=== PATIENT | male | born 1990 | race Caucasian/White ===

== ENCOUNTER 2017-07-22 22:16 | Emergency (ER) | payer SELFPAY ==
[~2017-07-22] VITALS: Ht 27.9 cm; Wt 81.8 kg
[~2017-07-22 22:16] MED LIST: CEPHALEXIN500 M1 PO; NAPROXEN EC500 MG PO; NO HOME MEDICATIONS; SEPTRA DS 8001 TAB PO; VYVANSE20 MG PO
[2017-07-22 22:25] VITALS: TEMP 99
[2017-07-22 23:57] VITALS: BP 154/67; PULSE 94
== END 2017-07-22 23:58 | disposition home or self-care (01) ==
LOC: COL.ER 22:16
DX: S91.302A Unspecified open wound, left foot, initial encounter (principal); S91.301A Unspecified open wound, right foot, initial encounter; X58.XXXA Exposure to other specified factors, initial encounter

== ENCOUNTER 2017-08-13 20:36 | Emergency (ER) | payer SELFPAY ==
[~2017-08-13] VITALS: Ht 180.3 cm; Wt 84.1 kg
[2017-08-13 20:39] VITALS: TEMP 97.9
[2017-08-13 20:48] LABS: BASO # 0.1 (0.0-0.2); BASO % 0.6 % (0.0-2.0); EOS # 0.1 (0.0-0.7); EOS % 0.9 % (0-4.0); GRAN # 6.8 (1.4-6.5); GRAN % 72.5 % (42.2-75.2); HEMATOCRIT 42.5 % (42.0-52.0); HEMOGLOBIN 14.8 g/dl (13.5-18.0); LYMPH # 1.7 (1.2-3.4); LYMPH % 17.9 % (20.0-51.0); MEAN CELL VOLUME 92 fl (80.0-100.0); MEAN CORPUSCULAR HEMOGLOBIN 32 pg (27.0-31.0); MEAN CORPUSCULAR HGB CONC 35 g/dl (33.0-37.0); MEAN PLATELET VOLUME 11.4 fl (7.4-10.4); MONO # 0.7 (0.1-0.6); MONO % 7.7 % (1.7-9.3); PLATELET COUNT 231 K/mm3 (130-400); RED BLOOD COUNT 4.63 M/mm3 (4.20-5.60); REDCELL DISTRIBUTION WIDTH-CV 11.9 % (11.5-14.5)
[2017-08-13 20:58] LABS: ALBUMIN 4.2 gm/dL (3.5-5.0); BILIRUBIN,TOTAL 0.9 mg/dL (0.0-1.0); CALCIUM 8.8 mg/dL (8.4-10.2); CREATININE, serum 0.8 mg/dL (0.66-1.25); POTASSIUM 3.7 mmol/L (3.4-5.0); TOTAL PROTEIN 7.6 gm/dL (6.4-8.2)
[2017-08-13 22:35] LABS: TRICYCLIC ANTIDEPRESS URINE NEGATIVE
[2017-08-14 00:54] VITALS: BP 107/87; PULSE 78
== END 2017-08-14 01:03 | disposition home or self-care (01) ==
LOC: COL.ER 20:36
PROVIDERS: Emergency Medicine
DX: F10.129 Alcohol abuse with intoxication, unspecified (principal); Y90.8 Blood alcohol level of 240 mg/100 ml or more
CPT/HCPCS: J2405; J7030

== ENCOUNTER 2018-03-21 20:31 | Emergency (ER) | payer OTHER ==
[~2018-03-21] VITALS: Ht 177.8 cm; Wt 79.5 kg
[2018-03-21 20:52] VITALS: TEMP 97.9
[2018-03-21 21:25] LABS: BASO # 0.1 (0.0-0.2); BASO % 0.7 % (0.0-2.0); EOS # 0.1 (0.0-0.7); EOS % 1.2 % (0-4.0); GRAN % 65.6 % (42.2-75.2); HEMATOCRIT 40.1 % (42.0-52.0); HEMOGLOBIN 13.9 g/dl (13.5-18.0); LYMPH # 2.1 (1.2-3.4); LYMPH % 23.3 % (20.0-51.0); MEAN CELL VOLUME 91 fl (80.0-100.0); MEAN CORPUSCULAR HEMOGLOBIN 32 pg (27.0-31.0); MEAN CORPUSCULAR HGB CONC 35 g/dl (33.0-37.0); MEAN PLATELET VOLUME 11.5 fl (7.4-10.4); MONO # 0.8 (0.1-0.6); MONO % 8.9 % (1.7-9.3); PLATELET COUNT 202 K/mm3 (130-400); RED BLOOD COUNT 4.39 M/mm3 (4.20-5.60); REDCELL DISTRIBUTION WIDTH-CV 12.2 % (11.5-14.5)
[2018-03-21 21:31] LABS: ALBUMIN 3.8 gm/dL (3.5-5.0); BILIRUBIN,TOTAL 0.3 mg/dL (0.0-1.0); CALCIUM 7.8 mg/dL (8.4-10.2); CREATININE, serum 0.92 mg/dL (0.66-1.25); POTASSIUM 4.6 mmol/L (3.4-5.0); TOTAL PROTEIN 6.5 gm/dL (6.4-8.2)
[2018-03-21 23:47] LABS: ACETAMINOPHEN < 10 ug/mL (10-30); SALICYLATE < 1.0 mg/dL
[2018-03-22] MEDS ORDERED: CRUTCHES MC (06:34)
[2018-03-22 08:50] LABS: TRICYCLIC ANTIDEPRESS URINE NEGATIVE
--- NOTE | 2018-03-22 09:29 | NUR ---
glassworker met with patient who states he is homeless and is unsure if any of his family members will help him. Patient has a fracture to his fibula and will need crutches. Worker arranged for financial counselor to meet with patient and [facility] to deliver crutches to his room. Worker provided taxi voucher for a ride to his sister's home, per patient request. Worker confirmed that patient is banned from staying at the [facility]. Worker collaborated with patient's nurse regarding the above information.
[2018-03-22 10:28] VITALS: BP 117/68; PULSE 95
== END 2018-03-22 10:33 | disposition home or self-care (01) ==
LOC: COL.ER 20:31
PROVIDERS: Emergency Medicine
DX: S82.831A Other fracture of upper and lower end of right fibula, initial encounter for closed fracture (principal); F10.129 Alcohol abuse with intoxication, unspecified; Y90.8 Blood alcohol level of 240 mg/100 ml or more; X58.XXXA Exposure to other specified factors, initial encounter
CPT/HCPCS: J2060; J7030

== ENCOUNTER 2018-05-17 19:36 | Emergency (ER) | payer SELFPAY ==
[~2018-05-17] VITALS: Ht 180.3 cm; Wt 81.8 kg
[~2018-05-17 19:36] MED LIST changes: +CRUTCHES MC
[2018-05-17 19:39] VITALS: BP 138/82; PULSE 80; TEMP 98
== END 2018-05-17 20:52 | disposition home or self-care (01) ==
LOC: COL.ER 19:36
DX: S86.912A Strain of unspecified muscle(s) and tendon(s) at lower leg level, left leg, initial encounter (principal); F17.210 Nicotine dependence, cigarettes, uncomplicated; F12.90 Cannabis use, unspecified, uncomplicated; X50.0XXA Overexertion from strenuous movement or load, initial encounter

== ENCOUNTER 2018-08-10 14:22 | Emergency (ER) | payer SELFPAY ==
[~2018-08-10] VITALS: Ht 180.3 cm; Wt 81.8 kg
[2018-08-10 14:27] VITALS: BP 154/76; PULSE 81; TEMP 98.1
== END 2018-08-10 16:00 | disposition home or self-care (01) ==
LOC: COL.ER 14:22
DX: S46.912A Strain of unspecified muscle, fascia and tendon at shoulder and upper arm level, left arm, initial encounter (principal); F17.210 Nicotine dependence, cigarettes, uncomplicated; V19.9XXA Pedal cyclist (driver) (passenger) injured in unspecified traffic accident, initial encounter

== ENCOUNTER 2018-12-25 20:09 | Emergency (ER) | payer SELFPAY ==
[~2018-12-25] VITALS: Ht 162.6 cm; Wt 63.6 kg
[2018-12-25 20:14] VITALS: TEMP 98.2
[2018-12-25 20:30] LABS: COLLECTION METHOD CLEAN CATCH
[2018-12-25 20:35] LABS: PH 5 (5-8); SQUAMOUS EPITHELIAL None Seen /hpf; URINE APPEARANCE Clear; URINE BACTERIA None Seen /hpf; URINE BILIRUBIN Negative (NEGATIVE); URINE BLOOD Negative (NEGATIVE); URINE COLOR Straw; URINE GLUCOSE Negative (NEGATIVE); URINE KETONE Negative (NEGATIVE); URINE LEUKOCYTE ESTERASE Negative (NEGATIVE); URINE NITRATE Negative (NEGATIVE); URINE PROTEIN(semi-quant) Negative (NEGATIVE); URINE RBC 0-2 /hpf; URINE UROBILINOGEN Negative (NEGATIVE); URINE WBC 0-2 /hpf
[2018-12-25 20:53] LABS: BASO # 0.1 (0.0-0.2); BASO % 0.6 % (0.0-2.0); EOS # 0.1 (0.0-0.7); EOS % 0.9 % (0-4.0); GRAN # 6.7 (1.4-6.5); GRAN % 66.4 % (42.2-75.2); HEMOGLOBIN 13.1 g/dl (13.5-18.0); LYMPH # 2.1 (1.2-3.4); LYMPH % 20.8 % (20.0-51.0); MEAN CELL VOLUME 87 fl (80.0-100.0); MEAN CORPUSCULAR HEMOGLOBIN 32 pg (27.0-31.0); MEAN CORPUSCULAR HGB CONC 36 g/dl (33.0-37.0); MEAN PLATELET VOLUME 11.4 fl (7.4-10.4); MONO # 1.1 (0.1-0.6); MONO % 10.8 % (1.7-9.3); PLATELET COUNT 223 K/mm3 (130-400); RED BLOOD COUNT 4.15 M/mm3 (4.20-5.60); REDCELL DISTRIBUTION WIDTH-CV 11.7 % (11.5-14.5)
[2018-12-25 20:54] LABS: TRICYCLIC ANTIDEPRESS URINE NEGATIVE
[2018-12-25 20:55] LABS: HEMATOCRIT 36.2 % (42.0-52.0)
[2018-12-25 21:01] LABS: ALANINE AMINOTRANSFERASE 123 U/L (21-72); ALBUMIN 4.5 gm/dL (3.5-5.0); ALCOHOL(ethanol),MEDICAL 223 mg/dL; ALKALINE PHOSPHATASE 48 U/L (50-136); ANION GAP 14 mmol/L (7-16); AST,SGOT 46 U/L (15-37); BILIRUBIN,TOTAL 1.1 mg/dL (0.0-1.0); BLOOD UREA NITROGEN 11 mg/dL (9-20); CALCIUM 8.9 mg/dL (8.4-10.2); CARBON DIOXIDE 22 mmol/L (22-30); CHLORIDE 104 mmol/L (98-107); CREATININE, serum 0.75 (0.66-1.25); GLUCOSE 95 mg/dL (74-106); POTASSIUM 3.8 mmol/L (3.4-5.0); SODIUM 140 mmol/L (137-145); TOTAL PROTEIN 7.2 gm/dL (6.4-8.2)
[2018-12-25 21:02] LABS: ACETAMINOPHEN < 10 ug/mL (10-30); SALICYLATE < 1.0 mg/dL
[2018-12-26 01:45] VITALS: BP 119/73; PULSE 90
== END 2018-12-26 01:45 | disposition home or self-care (01) ==
LOC: COL.ER 20:09
PROVIDERS: Emergency Medicine
DX: F10.129 Alcohol abuse with intoxication, unspecified (principal); F19.10 Other psychoactive substance abuse, uncomplicated; F17.210 Nicotine dependence, cigarettes, uncomplicated; Y90.7 Blood alcohol level of 200-239 mg/100 ml
CPT/HCPCS: J2060; J7030